=== PATIENT | female | born 1980 | race Caucasian/White ===

== ENCOUNTER 2016-06-08 17:05 | Observation (INO) | payer BC ==
[2016-06-08 17:43] LABS: % IMMATURE GRANULYOCYTES 1.3 % (0.0-1.1); ABSOLUTE IMMATURE GRANULOCYTES 0.11 10^3/uL (0.00-0.10); ADD DIFF? NO; ADD MORPH? NO; ADD SCAN? NO; ATYPICAL LYMPHOCYTE FLAG 10 (0-99); FRAGMENT RBC FLAG 0 (0-99); HEMATOCRIT 37.2 % (38.0-47.0); HEMOGLOBIN 13.1 g/dL (12.6-16.3); LEFT SHIFT FLG 10 (0-99); LIPEMIA HEMOLYSIS FLAG 90 (0-99); MEAN CELL HEMOGLOBIN CONCENTR. 35.2 g/dL (32.4-36.7); MEAN CELL VOLUME 90.7 fL (81.5-99.8); MEAN PLATELET VOLUME 10.7 fL (8.7-11.7); PLATELET CLUMPS FLAG 0 (0-99); PLATELET COUNT 273 10^3/uL (150-400); RED CELL DISTRIBUTION WIDTH 12.4 % (11.5-15.2)
[2016-06-08 18:05] LABS: ALANINE AMINOTRANSFERASE 36 IU/L (9-52); ASPARTATE AMINOTRANSFERASE 28 IU/L (14-46); BILIRUBIN,TOTAL 0.6 mg/dL (0.1-1.4); BILIRUBIN-CONJUGATED 0.4 mg/dL (0.0-0.5); BILIRUBIN-UNCONJUGATED 0.2 mg/dL (0.0-1.1); CREATININE 0.6 mg/dL (0.6-1.0); GLOMERULAR FILTRATION RATE > 60; LACTATE DEHYDROGENASE 478 IU/L (313-618); URIC ACID 4.9 mg/dL (2.5-6.8)
== END 2016-06-08 18:45 | disposition home or self-care (01) ==
LOC: FLD 17:05
PROVIDERS: ADMIT Obstetrics & Gynecology; ATTEND Obstetrics & Gynecology
DX: O13.3 Gestational [pregnancy-induced] hypertension without significant proteinuria, third trimester (principal); O09.513 Supervision of elderly primigravida, third trimester; Z3A.38 38 weeks gestation of pregnancy
CPT/HCPCS: 59025; G0378

== ENCOUNTER 2016-06-22 22:31 | Inpatient (IN) | payer BC ==
[2016-06-22] MEDS ORDERED: TERBUTALINE SULFATE 1 MG/ML VIAL IV PRN (23:38)
[2016-06-22] MEDS ORDERED: OXYTOCIN/RINGERS LACTATE 1,000 ML IV PRN (23:38)
[2016-06-22] MEDS ORDERED: OLIVE OIL 118 ML BTL MISC PRN (23:38)
[2016-06-22] MEDS ORDERED: LIDOCAINE 1% 30 ML SDV SC PRN (23:38)
[2016-06-22] MEDS ORDERED: EPSOM SALT 454 GM TP PRN (23:38)
[2016-06-22] MEDS ORDERED: OLIVE OIL 118 ML BTL ONE ×2 (23:47)
[2016-06-22] MEDS ORDERED: AMMONIA AROMATIC 1 EACH AMP IH ONE (23:47)
[2016-06-22] MEDS ORDERED: LIDOCAINE 1% 30 ML SDV ONE (23:47)
[2016-06-22] MEDS ORDERED: TERBUTALINE SULFATE 1 MG/ML VIAL ONE (23:47)
[2016-06-22] MEDS ORDERED: OXYTOCIN 10 UNIT/ML VIAL ONE (23:48)
[2016-06-22] MEDS ORDERED: MISOPROSTOL 200 MCG TAB ONE (23:48)
[2016-06-22] MEDS ORDERED: CALCIUM CARBONATE 500 MG CHEWABLE TAB PO PRN (23:55)
[2016-06-22] MEDS ORDERED: OXYTOCIN/LR *LOW DOSE PROTOCOL IV SCH (23:55)
[2016-06-23] MEDS: LR 1,000 ML IV PRN ×2 (00:48→20:57)
[2016-06-23 00:53] LABS: % IMMATURE GRANULYOCYTES 1.1 % (0.0-1.1); ADD DIFF? NO; ADD MORPH? NO; ADD SCAN? NO; ATYPICAL LYMPHOCYTE FLAG 0 (0-99); FRAGMENT RBC FLAG 0 (0-99); HEMOGLOBIN 12.3 g/dL (12.6-16.3); LEFT SHIFT FLG 10 (0-99); LIPEMIA HEMOLYSIS FLAG 90 (0-99); MEAN CELL HEMOGLOBIN 32.3 pg (27.9-34.1); MEAN CELL HEMOGLOBIN CONCENTR. 35.1 g/dL (32.4-36.7); MEAN CELL VOLUME 91.9 fL (81.5-99.8); MEAN PLATELET VOLUME 11.1 fL (8.7-11.7); PLATELET CLUMPS FLAG 0 (0-99); PLATELET COUNT 264 10^3/uL (150-400); RED BLOOD CELL COUNT 3.81 10^6/uL (4.18-5.33); RED CELL DISTRIBUTION WIDTH 12.4 % (11.5-15.2)
--- NOTE | 2016-06-23 07:26 | PDGENHP ---
History and Physical - Chief Complaint 35 y.o. at 40 6/7 weeks with SROM - History of Present Illness S:35 y.o. female presents at 40 6/7 weeks with SROM on 06/22/16 at 1530. O: VSS- afebrile. NST- reactive CAT I +SROM with clear fluid. NEG GBS A: IUP @ 40 6/7 with SROM and early labor. P:Admitted to L&D on 06/22/16 at 2330 and agreed to pitocin for IOL. History Information - Allergies/Home Medication List Allergies/Adverse Reactions: No Known Allergies Allergy (Unverified 06/08/16 17:12) Home Medications: IRON 1 tab PO DAILY 06/08/16 [Last Taken Unknown] Dha 1 tab PO DAILY 06/08/16 [Last Taken Unknown] I have personally reviewed and updated: family history, medical history, social history, surgical history - Past Medical History recurrent UTI - Surgical History Reports: no pertinent surgical hx - Social History Smoking Status: Former smoker Alcohol Use: None Drug Use: None Review of Systems ROS: 10pt was reviewed & negative except for what was stated in HPI & below Constitutional: Reports: no symptoms EENMT: Reports: no symptoms Cardiac: Reports: no symptoms Respiratory: Reports: no symptoms Gastrointestinal: Reports: no symptoms Genitourinary: Reports: no symptoms Muscolosketal: Reports: no symptoms Skin: Reports: no symptoms Neurological: Reports: no symptoms Hematologic/Lymphatic: Reports: no symptoms Immunologic/Allergy: Reports: no symptoms Physical Exam Constitutional: no apparent distress Eyes: PERRL Ears, Nose, Mouth, Throat: moist mucous membranes Cardiovascular: regular rate and rhythym, no murmur, rub, or gallop Respiratory: no respiratory distress, no rales or rhonchi, clear to auscultation Gastrointestinal: normoactive bowel sounds, soft, non-tender abdomen Genitourinary: no bladder fullness, no bladder tenderness Skin: warm, normal color Musculoskeletal: full muscle strength Neurologic: AAOx3, sensation intact bilaterally Psychiatric: interacting appropriately Lab Data & Imaging Review 06/23/16 00:30 WBC 9.19 10^3/uL (3.80-9.50) 06/23/16 00:30 RBC 3.81 10^6/uL (4.18-5.33) L 06/23/16 00:30 Hgb 12.3 g/dL (12.6-16.3) L 06/23/16 00:30 Hct 35.0 % (38.0-47.0) L 06/23/16 00:30 MCV 91.9 fL (81.5-99.8) 06/23/16 00:30 MCH 32.3 pg (27.9-34.1) 06/23/16 00:30 MCHC 35.1 g/dL (32.4-36.7) 06/23/16 00:30 RDW 12.4 % (11.5-15.2) 06/23/16 00:30 Plt Count 264 10^3/uL (150-400) 06/23/16 00:30 MPV 11.1 fL (8.7-11.7) 06/23/16 00:30 Neut % (Auto) 68.5 % (39.3-74.2) 06/23/16 00:30 Lymph % (Auto) 20.0 % (15.0-45.0) 06/23/16 00:30 [place] % (Auto) 8.9 % (4.5-13.0) 06/23/16 00:30 Eos % (Auto) 0.8 % (0.6-7.6) 06/23/16 00:30 Baso % (Auto) 0.7 % (0.3-1.7) 06/23/16 00:30 Nucleat RBC Rel Count 0.0 % (0.0-0.2) 06/23/16 00:30 Absolute Neuts (auto) 6.30 10^3/uL (1.70-6.50) 06/23/16 00:30 Absolute Lymphs (auto) 1.84 10^3/uL (1.00-3.00) 06/23/16 00:30 Absolute Monos (auto) 0.82 10^3/uL (0.30-0.80) H 06/23/16 00:30 Absolute Eos (auto) 0.07 10^3/uL (0.03-0.40) 06/23/16 00:30 Absolute Basos (auto) 0.06 10^3/uL (0.02-0.10) 06/23/16 00:30 Absolute Nucleated RBC 0.00 10^3/uL (0-0.01) 06/23/16 00:30 Immature Gran % 1.1 % (0.0-1.1) 06/23/16 00:30 Immature Gran # 0.10 10^3/uL (0.00-0.10) 06/23/16 00:30 Membrane Rupture POSITIVE (NEGATIVE) H 06/22/16 23:00 Patient ABO/Rh A POSITIVE 06/23/16 00:30 Antibody Screen NEGATIVE 06/23/16 00:30 Assessment & Plan Assessment: 35 y.o. at 40 6/7 weeks with SROM and early labor. Plan: Admit to L&D and begin pitocin for augmentation of labor.
--- NOTE | 2016-06-23 07:31 | OBPROG ---
OBG Progress Note Assessment/Plan: Assessment: 35 y.o. at 40 6/7 weeks with +SROM and early labor. Plan: Admit to L&D and begin pitocin for augmentation of labor. 06/23/16 07:29 Subjective: Appears comfortable with pitocin infusing. VSS- afebrile. NST- reactive. Clear amniotic fluid. Objective: 06/23/16 00:30 Patient ABO/Rh A POSITIVE 06/23/16 00:30 Current Contraction Pattern: Irregular FHR (bpm): 140 FHR Pattern Variability: Moderate FHR Category: 1 Membranes: SROM Amniotic Fluid Color: Clear - Physical Exam General Appearance: WD/WN, alert, no apparent distress Estimated Weight: [id number] EENT: PERRL/EOMI, normal ENT inspection Neck: non-tender, full range of motion, supple, normal inspection Respiratory: chest non-tender, lungs clear, normal breath sounds Cardiac/Chest: normal peripheral pulses, regular rate, rhythm Abdomen: normal bowel sounds, non-tender, soft Membranes: SROM Amniotic Fluid Color: clear Extremities: normal range of motion, non-tender Back: Normal inspection Skin: normal color, warm/dry Neuro/Psych: alert, normal mood/affect, oriented x 3 ICD10 Worksheet Patient Problems: Problems Problem Status Onset SROM (spontaneous rupture of membranes) Acute - ICD10 Problem Qualifiers (1) SROM (spontaneous rupture of membranes)
--- NOTE | 2016-06-23 09:49 | OBPROG ---
OBG Progress Note Assessment/Plan: Assessment: 35 y.o. at 40 6/7 weeks with PROM at term Plan: 1) Labor: SROM on 06/22/16 at 1530, clear fluid. She did not present until 2300. She agreed to pitocin, it was started at 0200 but not increased past 2 mU /min until 0500. Pitocin stopped just now because of low FHT's, will restart after status reassuring x 20 minutes. 2) status: Over all reassuring now w/ moderate variability present. I walked into the room as she was leaving the bathroom, and the FHT's were in the 70-80's w/ external monitoring. We tried to confirm, pulse ox placed, O2 given , and SVE performed. She was 3-4/80/-2, FSE placed, and by then, it was in the 130's. I suspect in review, it was doptones in the 80's since she has had variables and early decels and her maternal HR was in the 60's. Discussed IUPC placement for amnioinfusion, and she declines right now. Will monitor and readdress if variables continue. 3) GBS neg 4) Pain - no issues 5) Hx GHTN - all BP's normal now. Will check PIH labs if BP >= 140/90. 06/23/16 09:46 Subjective: Pt has no complaints. Objective: 06/23/16 00:30 Patient ABO/Rh A POSITIVE 06/23/16 00:30 - SVE Dilation (cm): 3 Effacement (%): 80 Station: -2 Current Contraction Pattern: Irregular FHR (bpm): 140 FHR Pattern Variability: Moderate FHR Category: 2 (early and variable decels, not great monitoring, so FSE placed. ) Membranes: SROM Amniotic Fluid Color: Clear - Physical Exam Estimated Weight: [id number] ICD10 Worksheet Patient Problems: Problems Problem Status Onset SROM (spontaneous rupture of membranes) Acute
--- NOTE | 2016-06-23 10:11 | OBPROG ---
OBG Progress Note Assessment/Plan: CTSP for decel from the 140's to the 60's for total of 4 minutes, italo in the 60's for 1.5 minutes. I was called, resuscitation maneuvers initiated, pt in hands/knees upon my arrival. CX 80/-2, IUPC placed after counseling w/ patient. Baby had recovered upon my arrival w/ moderate variability present. I discussed my concern that we had not even restarted the pitocin and this prolonged decel occurred w/o any known trigger. Discussed plan for amnioinfusion, and she agrees. Discussed if this occurs again, then I recommend proceeding w/ a section. Discussed risk of emergency C/S if decel w/o recovery occurs. Will continue to monitor closely. Assessment: 35 y.o. at 40 6/7 weeks with PROM at term Plan: 1) Labor: SROM on 06/22/16 at 1530, clear fluid. She did not present until 2300. She agreed to pitocin, it was started at 0200 but not increased past 2 mU /min until 0500. Pitocin stopped just now because of low FHT's, will restart after status reassuring x 20 minutes. 2) status: See above. Will start amnioinfusion. 3) GBS neg 4) Pain - no issues 5) Hx GHTN - all BP's normal now. Will check PIH labs if BP >= 140/90. 06/23/16 09:46 06/23/16 10:08 Subjective: No complaints Objective: 06/23/16 00:30 Patient ABO/Rh A POSITIVE 06/23/16 00:30 Current Contraction Pattern: Irregular FHR (bpm): 140 FHR Pattern Variability: Marked FHR Category: 2 (prolonged decel) Amniotic Fluid Color: Clear - Physical Exam Estimated Weight: [id number] ICD10 Worksheet Patient Problems: Problems Problem Status Onset SROM (spontaneous rupture of membranes) Acute
[2016-06-23] MEDS ORDERED: fentaNYL 2MCG/ML/BUP 0.1% RTU 100 ML BAG EP ONE (11:55)
[2016-06-23] MEDS ORDERED: fentaNYL 100 MCG/2 ML INJ ONE ×2 (11:55→17:45)
[2016-06-23] MEDS ORDERED: BUPIVACAINE 0.25% 30 ML SDV ONE (12:00)
[2016-06-23] MEDS ORDERED: PHENYLEPHRINE HCL 100 MCG/ML SYR ONE ×2 (12:21→17:45)
[2016-06-23] MEDS ORDERED: ONDANSETRON 4 MG/2 ML VIAL IVP PRN (12:57)
[2016-06-23] MEDS ORDERED: NALOXONE HCL 0.4 MG/ML INJ IVP PRN (12:57)
[2016-06-23] MEDS ORDERED: PHENYLEPHRINE HCL 100 MCG/ML SYR IVP PRN ×2 (12:57→19:11)
[2016-06-23] MEDS ORDERED: fentaNYL 2MCG/ML/BUP 0.1% RTU 100 ML EP SCH (13:00)
[2016-06-23] MEDS ORDERED: LR 500 ML IV SCH (13:00)
--- NOTE | 2016-06-23 13:07 | OBPROG ---
OBG Progress Note Assessment/Plan: Assessment: 35 y.o. at 41+0 weeks (prior notes not updated) with PROM at term Plan: 1) Labor: SROM on 06/22/16 at 1530, clear fluid. On only 6 mU/min of pitocin ( not increased this AM due to pain, per RN). No cervical change, but MVU's are not adequate at all. Will increase pitocin to obtain adequate MVU's. 2) status: Occ early decels; one late that resolved; no more severe variables or prolonged decels; continue w/ amnioinfusion. 3) GBS neg 4) Pain - controlled w/ [place]. 5) Hx GHTN - all BP's normal now. Will check PIH labs if BP >= 140/90. 06/23/16 13:05 Subjective: Pt comfortable with [place] now. She had some left sided flank pain w/ contractions , but it has now resolved with the [place]. No bleeding. Objective: 06/23/16 00:30 Patient ABO/Rh A POSITIVE 06/23/16 00:30 - SVE Dilation (cm): 5 Effacement (%): 90 Station: -2 Current Contraction Pattern: Regular FHR (bpm): 140 FHR Pattern Variability: Moderate FHR Category: 2 (one late decel when she was lying flat getting bojorquez placed, now no decels and good moderate variability) Amniotic Fluid Color: Clear - Physical Exam Estimated Weight: [id number] ICD10 Worksheet Patient Problems: Problems Problem Status Onset SROM (spontaneous rupture of membranes) Acute
[2016-06-23] MEDS ORDERED: ceFAZolin 2 GM/DEXTROSE 100 ML IV ONE (17:21)
[2016-06-23] MEDS ORDERED: CITRIC ACID/SODIUM CITRATE 30 ML UDCUP PO ONE (17:21)
[2016-06-23] MEDS ORDERED: FAMOTIDINE 20 MG/NACL 50 ML IV ONE (17:26)
[2016-06-23] MEDS ORDERED: LIDO/EPI 2% **for epidural** 20 ML SDV ONE (17:45)
[2016-06-23] MEDS ORDERED: ONDANSETRON 4 MG/2 ML VIAL ONE (17:45)
[2016-06-23] MEDS ORDERED: morphINE PF 5 MG/10 ML INJ ONE (17:45)
[2016-06-23] MEDS ORDERED: ACETAMINOPHEN 325 MG TAB PO PRN (17:56)
[2016-06-23] MEDS ORDERED: SIMETHICONE 80 MG TAB CHEW PO PRN (17:56)
--- NOTE | 2016-06-23 17:56 | OBPROG ---
OBG Progress Note Assessment/Plan: Assessment: 35 y.o. at 41+0 weeks (prior notes not updated) with PROM at term w/ nonreassuring heart rate tracing CTSP for prolonged decel. Upon my arrival, the FHR was just recovering to the 120's after a 7 minute decel to the 80-90's. Upon my arrival, the patient was in hands/knees position, the RN had turned off the pitocin, IVF bolus and amnioinfusion bolus was being given and O2 per NC was in place. I checked her cervix in hands/knees position, and I felt cervix all around, c/w about 8cm. This was confirmed after placing her in left lateral position. CX 8-9/70/-1. Baby in LOP position. I discussed my concern that her baby's FHT was very concerning; although it had recovered and currently had variability present; the baby was clearly not tolerating labor. There had been no position changes or triggers that we could identify, so I strongly recommended proceeding with a at this time. I discussed that since the baby had recovered, we could try to continue to labor; but since it was her first baby and baby was in OP position, it could be a few hours. Since baby was not near imminent delivery vaginally, there would be a high risk of this recurring, especially w/ pushing, and a risk of needing an emergency . All r/b/i/a reviewed; risks of surgery reviewed to include risks of infection, bleeding, blood transfusion, damage to surrounding structures and organs, hysterectomy and risks of anesthesia. She indicated understanding and after discussion with her , she desires to proceed w/ C/S. Consents reviewed and signed. Plan: Proceed with primary low transverse section. 06/23/16 17:48 Subjective: [place] in place, no complaints. Objective: 06/23/16 00:30 Patient ABO/Rh A POSITIVE 06/23/16 00:30 Current Contraction Pattern: Regular FHR (bpm): 80 FHR Category: 2 - Physical Exam Estimated Weight: [id number] ICD10 Worksheet Patient Problems: Problems Problem Status Onset SROM (spontaneous rupture of membranes) Acute
[2016-06-23] MEDS ORDERED: OXYTOCIN/RINGERS LACTATE 1,000 ML IV SCH (18:00)
[2016-06-23] MEDS ORDERED: HEMABATE 250 MCG/1 ML AMP IM ONE (18:17)
[2016-06-23] MEDS ORDERED: METHYLERGONOVINE MAL 0.2 MG/ML INJ ONE (18:25)
[2016-06-23 18:50] LABS: CORD BLOOD PCO2 55.2 mmHg (37-60)
[2016-06-23 18:53] LABS: PH VENOUS CORD BLOOD 7.27 (7.20-7.42)
[2016-06-23] MEDS ORDERED: OXYTOCIN 100 UNITS/10 ML VIAL ONE (18:55)
--- NOTE | 2016-06-23 18:57 | OBPROC ---
- Delivery Pre-op Diagnoses: non-reassuring heart tones Post-op Diagnoses: non-reassuring heart tones. meconium Procedure: Primary Surgeon: Ingris Veloz Visual Education Director: Aye King Anesthesiologist: Damon Bejarano [employer] Cas[employer]/FERN PICKER: Jaye Asencio Anesthesia: Epidural Complications: None Specimen(s)/Path: Other (Specify) (cord gases) IV Fluid (ml): 1,000 EBL: 1000 Cord Gases: Cord Gases Cord Blood PCO2 55.2 mmHg (37-60) 06/23/16 18:13 Cord Base Excess TNP 06/23/16 18:13 Cord ABG pH 7.20 (7.10-7.37) 06/23/16 18:13 Cord VBG pH 7.27 (7.20-7.42) 06/23/16 18:13 - Info A Delivery Date: 06/23/16 Delivery Time: 18:13 Sex of Infant: Male Score (1 Min): 2 Score (5 Min): 9
[2016-06-23] MEDS ORDERED: MEPERIDINE 25 MG/ML SYR IVP PRN (19:11)
[2016-06-23] MEDS ORDERED: fentaNYL 100 MCG/2 ML INJ IVP PRN (19:11)
[2016-06-23] MEDS ORDERED: HYDROmorphONE/DILAUDID 1 MG/ML SYR IVP PRN (19:11)
[2016-06-23] MEDS ORDERED: DIPHENOXYLATE/ATROPINE LOMOTIL 1 TAB PO ONE (20:00)
[2016-06-23] MEDS: KETOROLAC 30 MG/1 ML SDV IVP PRN (20:17)
[2016-06-24] MEDS: KETOROLAC 30 MG/1 ML SDV IVP PRN ×3 (02:15→14:05)
--- NOTE | 2016-06-24 05:12 | GOP ---
[f rep st] OPERATIVE REPORT DATE OF OPERATION: 06/23/2016 SURGEON: Ingris Veloz MD FARMWORKER GENERAL: Aye King CNM ANESTHESIA: Epidural. PREOPERATIVE DIAGNOSIS: 1. Premature rupture membranes at term. 2. intolerance of labor with non-reassuring heart rate tracing. POSTOPERATIVE DIAGNOSIS: 1. Premature rupture membranes at term. 2. intolerance of labor with non-reassuring heart rate tracing. PROCEDURE PERFORMED: Primary low transverse section. FINDINGS: 1. Delivered a male , weighing 3160 g with Apgars of 2 and 9 at 1813. There was a loose nuch al cord noted at time of delivery, that was reduced during delivery, as well as meconium-stained flu id which had not been noted prior during her labor course. 2. Normal uterus, fallopian tubes, and ovaries. 1. Uterine atony was noted which was treated intraoperatively with IV Pitocin, Hemabate, and Mether gine. 3. SPECIMENS: None. ESTIMATED BLOOD LOSS: 1000 cc. INDICATIONS: Patient is a 35-year-old 1, para 0, female who was admitted at 40 weeks and 6 days estimated gestational age with premature rupture of membranes at term. She was started on Joel abhi for induction of labor and she progressed to 8 cm dilated, 90% effaced, and -1 station. She had severe variables early in her labor which were treated with an amnio infusion after she had a prolo nged deceleration on the morning of delivery. The amnio infusion appeared to work well until she pr oceeded to have a prolonged 7-minute decel around 1700. At that time, she was checked and had progr essed in labor. However, due to the severe nature of the prolonged deceleration, we discussed the r isks of continuing to proceed in labor versus the benefit of delivering via a section. I r ecommended proceeding with a delivery and, after discussion of all the risks and benefits, she agreed to proceed. She was transferred to the operating room, where upon arrival despite the fe yen heart rate recovering prior to leaving the labor and delivery room, upon arrival to the operaitkin hospital g room, the heart rate was in the 90s and therefore the team transitioned into an emergent del jayla. The heart rate remained in the 80s to 90s for a few minutes as we were getting her pos itioned and ready for surgery. It then started to recover and we proceeded urgently with the rest o f the surgery. DESCRIPTION OF PROCEDURE: The patient was taken to the operating room where epidural anesthesia was found be adequate. Patient was prepared and draped in normal sterile fashion in dorsal supine posi tion with a left tilt. After confirmation of adequate anesthesia and administration of Ancef 2 g IV , a low transverse skin incision was made and carried down to the level of the fascia in the usual P fannenstiel technique. The peritoneal cavity was entered bluntly and incision was extended superior ly, then inferiorly with stretching. A bladder blade was placed. An incision was made in the vesic outerine peritoneum, which was extended laterally bilaterally. The bladder was then dissected away from the lower uterine segment digitally. A low transverse uterine incision was made and extended d igitally. The baby was then delivered in vertex presentation with a loose nuchal cord that was redu cyn after delivery of the head, and then the baby was delivered. There was meconium-stained f luid noted upon entry into the uterine cavity and the nurse practitioner was notified. The baby was quickly delivered and the cord doubly clamped and cut, and the baby passed off to the wait ing nurse practitioner. A segment of cord was obtained for cord gases. The cord blood was then obtained. The uterus was then massaged and the placenta was delivered. The uterus was exteri orized on the maternal abdomen and wiped with a dry lap sponge to remove all residual membranes. Th e uterine incision was then closed with a running lock stitch of 0 Monocryl. A 2nd layer was placed for imbrication using the same suture. The uterine tone was poor during this time, and Hemabate wa s administered as well as a dose of Methergine. Pitocin was running at a concentration of 50 units in 1 L of IV fluid. The tone slowly improved. The posterior cul-de-sac was irrigated with copious amounts of normal saline and noted to be clear. The uterine incision was reexamined and noted to be hemostatic. The uterus was placed back in the maternal abdomen, and the gutters were wiped with mo ist lap sponges bilaterally. The uterine incision was reexamined and there was 1 small area of blee ding that required a suture. Therefore, the uterus was exteriorized again to place a suture with be tter visualization. A [id number] stitch was placed and hemostasis was assured. The uterus was placed back in the maternal abdomen and re-examined closely. The Bovie was used and hemostasis was obtained. The rectus muscle surfaces and fascial surfaces were examined closely and hemostasis was obtained wi th the use of Bovie. The fascia was then closed with a running nonlocked stitch of #1 PDS. The sub cutaneous tissue was irrigated with copious amounts of normal saline and then reapproximated with in terrupted stitches of 2-0 Vicryl. The skin was closed with a subcuticular stitch of 4-0 Monocryl. Steri-Strips and a bandage dressing were placed. A vaginal Crede exam was performed and blood clots and debris removed from the vaginal vault. The u terine tone was noted to be appropriate and good. All sponge, lap, and needle counts correct x2. T he patient was transferred to the PACU in stable and good condition. COMPLICATIONS: Uterine atony. DRAINS: Lui to gravity. IV FLUIDS: 1000 cc. URINE OUTPUT: 300 cc. /[id number]/MODL
[2016-06-24 05:26] LABS: % IMMATURE GRANULYOCYTES 0.4 % (0.0-1.1); ABSOLUTE IMMATURE GRANULOCYTES 0.04 10^3/uL (0.00-0.10); ADD DIFF? NO; ADD MORPH? NO; ADD SCAN? NO; ATYPICAL LYMPHOCYTE FLAG 0 (0-99); FRAGMENT RBC FLAG 0 (0-99); HEMATOCRIT 30.9 % (38.0-47.0); HEMOGLOBIN 10.8 g/dL (12.6-16.3); LEFT SHIFT FLG 60 (0-99); LIPEMIA HEMOLYSIS FLAG 90 (0-99); MEAN CELL HEMOGLOBIN 31.8 pg (27.9-34.1); MEAN CELL VOLUME 90.9 fL (81.5-99.8); MEAN PLATELET VOLUME 10.6 fL (8.7-11.7); PLATELET CLUMPS FLAG 0 (0-99); PLATELET COUNT 199 10^3/uL (150-400); RED CELL DISTRIBUTION WIDTH 12.6 % (11.5-15.2)
--- NOTE | 2016-06-24 09:09 | SOAPPROG ---
SOAP Progress Note Assessment/Plan: Assessment: POD#1 s/p pLTCS at 40w1d for NRFHT Recovering appropriately Plan: Routine post-op/ care 06/24/16 09:08 Subjective: Baby is latching well. Her pain is well controlled with toradol. Did stand up and felt well. Tolerating regular diet. No heavy bleeding. Objective: Vital Signs Temp Pulse Resp BP Pulse Ox 36.6 C 79 16 102/59 L 94 06/24/16 04:30 06/24/16 04:30 06/24/16 04:30 06/24/16 04:30 06/24/16 04:30 Laboratory Results 06/24/16 04:40 06/23/16 06/24/16 06/25/16 05:59 05:59 05:59 Intake Total 2000 Output Total 2500 Balance -500 Gen: alert, awake, NAD Resp: unlabored CV: RRR Abd: soft, minimally distended, appropriately tender Incision: bandage c/d Ext: SCDs in place, no edema ICD10 Worksheet Patient Problems: Problems Problem Status Onset SROM (spontaneous rupture of membranes) Acute
[2016-06-24] MEDS: DOCUSATE SODIUM 100 MG CAP PO PRN (14:06)
[2016-06-24] MEDS: IBUPROFEN 600 MG TAB PO PRN (20:08)
[2016-06-24] MEDS: HYDROCODONE/APAP 5/325 TAB PO PRN (22:37)
[2016-06-25] MEDS: IBUPROFEN 600 MG TAB PO PRN ×4 (02:15→23:31)
[2016-06-25] MEDS: HYDROCODONE/APAP 5/325 TAB PO PRN ×5 (02:15→21:03)
--- NOTE | 2016-06-25 08:40 | OBPROG ---
OBG Progress Note Assessment/Plan: Assessment: 35 y.o. POD#2 s/p primary LTCS for NRFHT - hemodynamically stable and doing well Plan: 1) Continue routine PP care 2) RI/RH + 3) Anticipate d/c home tomorrow w/ F/U in 2 weeks or sooner prn 06/25/16 08:39 Subjective: Pt is ambulating, tolerating regular diet, voiding spontaneously, passing flatus , breast feeding progressing. Objective: 06/24/16 04:40 Patient ABO/Rh A POSITIVE 06/23/16 00:30 Temp Pulse Resp BP Pulse Ox 36.6 C 72 16 102/57 L 93 06/25/16 02:06 06/25/16 02:06 06/25/16 02:06 06/25/16 02:06 06/25/16 02:06 Uterine Position/Fundal Height: Umbilicus -1 Uterine Tone: Firm - Physical Exam General Appearance: WD/WN, alert, no apparent distress Estimated Weight: [id number] Respiratory: lungs clear Cardiac/Chest: regular rate, rhythm Abdomen: normal bowel sounds, soft, incision (c/d/i, steri strips intact) ICD10 Worksheet Patient Problems: Problems Problem Status Onset SROM (spontaneous rupture of membranes) Acute
[2016-06-25] MEDS: DOCUSATE SODIUM 100 MG CAP PO PRN ×2 (08:55→21:03)
--- NOTE | 2016-06-25 12:06 | POSTANESTH ---
Post Anesthetic Evaluation Cardiovascular Status: Normal, Stable Respiratory Status: Normal, Stable Level of Consciousness/Mental Status: Can Participate in Eval Pain Control: Adequate, Prn Tx Ordered Nausea/Vomiting Control: Adequate, Prn Tx Ordered Complications Possibly Related to Anesthesia: None Noted
[2016-06-25 23:18] VITALS: RESP 18
[2016-06-26] MEDS: IBUPROFEN 600 MG TAB PO PRN ×2 (05:37→11:52)
--- NOTE | 2016-06-26 07:42 | OBGCSDC ---
General Delivery Information - General Info : 1 Para: 1 Delivery Date: 06/23/16 Delivery Time: 18:13 Delivery Physician/CNM: Ingris Veloz Plant Maintenance Manager: Aye King Admission Date: 06/22/16 Labs: Patient ABO/Rh A POSITIVE 06/23/16 00:30 Hct 30.9 % (38.0-47.0) L 06/24/16 04:40 - [place] Info A Weight (gm): 3160 kg Sex of : Male Score (1 Min): 2 Score (5 Min): 9 Vaginal - Diagnosis Amniotic Fluid Color: Clear - Delivery IUP (Weeks): 41 Number of Prior Sections: 0 Indications for Current Section: Non-reas. Status Procedures: LTCS Intra-op Complications: None EBL: 1000 Anesthesia: Epidural Discharge Information - Discharge Information Discharge Medications: Ibuprofen, Iron, Vitamins, Vicodin Condition: Good Instruction/Follow Up: Two Weeks Discharge Physician/CNM: Aye King Discharge Date: 06/26/16 Dictated: No
[2016-06-26] MEDS ORDERED: IRON POLYSAC/IRON HEME 28 MG TAB PO SCH (09:00)
[2016-06-26] MEDS: DOCUSATE SODIUM 100 MG CAP PO PRN (09:33)
[2016-06-26 09:41] VITALS: BP 118/82; PULSE 73; TEMP 97.9; O2SAT 92
== END 2016-06-26 12:30 | disposition home or self-care (01) | DRG 766 ==
LOC: FLD 22:31 → OBSVTOIN 22:31 → FLD 06-23 19:21 → FOB 06-23 21:23
PROVIDERS: ADMIT Midwife; ATTEND Obstetrics & Gynecology
PROC: 3E033GC Introduction of Other Therapeutic Substance into Peripheral Vein, Percutaneous Approach (ICD-10-PCS; principal; 2016-06-23)
PROC: 0U7C7DZ Dilation of Cervix with Intraluminal Device, Via Natural or Artificial Opening (ICD-10-PCS; principal; 2016-06-23)
PROC: 10D00Z1 Extraction of Products of Conception, Low, Open Approach (ICD-10-PCS; principal; 2016-06-23)
PROC: 3E033VJ Introduction of Other Hormone into Peripheral Vein, Percutaneous Approach (ICD-10-PCS; principal; 2016-06-23)
DX: O42.92 Full-term premature rupture of membranes, unspecified as to length of time between rupture and onset of labor (principal); O76 Abnormality in fetal heart rate and rhythm complicating labor and delivery; O75.89 Other specified complications of labor and delivery; O32.8XX0 Maternal care for other malpresentation of fetus, not applicable or unspecified; O48.0 Post-term pregnancy; O69.2XX0 Labor and delivery complicated by other cord entanglement, with compression, not applicable or unspecified; O77.0 Labor and delivery complicated by meconium in amniotic fluid; Z87.891 Personal history of nicotine dependence; Z3A.40 40 weeks gestation of pregnancy; Z37.0 Single live birth
CPT/HCPCS: J0690; J1885; J2210; J2274; J2370; J2405; J2590; J3010; J3105